=== PATIENT | female | born 1935 | race Caucasian/White ===

== ENCOUNTER 2016-10-08 14:49 | Inpatient (IN) | payer OTHER, MEDICAID ==
[~2016-10-08] VITALS: Ht 152.4 cm; Wt 72.1 kg
--- NOTE | 2016-10-08 15:00 | NUR ---
PT TO ER BED 11. TP WAS SENT BY PMD FOR MEDICAL EVAL PRIOR TO POSSIBLE GEROPSYCH ADMISSION. PT IS AAOX3. DENIES ANY MEDICAL COMPLAINT AT THIS TIME. STATES " I DONT KNOW WHY IM HERE. " MAYBE MY SON WANTS ME HERE. " VSS. AWAITING MD JOSE.
--- NOTE | 2016-10-08 15:30 | NUR ---
DR WARNER AT BEDSIDE FOR EVAL.
--- NOTE | 2016-10-08 15:31 | NUR ---
PRINTED CIRCUIT BOARDS LAMINATOR AT BEDSIDE FOR BLOOD DRAW.
[2016-10-08 15:54] LABS: ALANINE AMINOTRANSFERASE 30 U/L (12-78); ALBUMIN 3.6 g/dL (3.4-5.0); ALCOHOL, BLOOD < 3 mg/dL (0-0); ALKALINE PHOSPHATASE 69 U/L (46-116); ASPARTATE AMINOTRANSFERASE 24 U/L (15-37); BILIRUBIN,DIRECT 0.1 mg/dL (0.0-0.2); BILIRUBIN,TOTAL 0.6 mg/dL (0.2-1.0); CALCIUM, SERUM 9.4 mg/dL (8.5-10.1); CARBON DIOXIDE 31 mmol/L (21-32); CHLORIDE 103 mmol/L (98-107); CREATININE 0.9 mg/dL (0.6-1.3); GLUCOSE 239 mg/dL (74-106); POTASSIUM 3.9 mmol/L (3.5-5.1); SODIUM SERUM 139 mmol/L (136-145); UREA NITROGEN, BLOOD 10 mg/dL (7-18)
[2016-10-08] MEDS ORDERED: ASPI-991 PO (16:03)
[2016-10-08] MEDS ORDERED: GABA-532 PO (16:03)
[2016-10-08] MEDS ORDERED: CHOL200026 PO (16:03)
[2016-10-08] MEDS ORDERED: DONE10TA44 PO (16:03)
[2016-10-08] MEDS ORDERED: POLY119P2 PO (16:03)
[2016-10-08] MEDS ORDERED: ACET-868 PO (16:03)
[2016-10-08] MEDS ORDERED: GLIM4TAB2 PO (16:03)
[2016-10-08] MEDS ORDERED: QUET25TA PO ×2 (16:03)
[2016-10-08] MEDS ORDERED: LOPE2TAB25 PO (16:03)
[2016-10-08] MEDS ORDERED: METF10002 PO (16:03)
[2016-10-08] MEDS ORDERED: SIME125C81 PO (16:03)
[2016-10-08] MEDS ORDERED: VALS160T2 PO (16:03)
[2016-10-08 16:04] LABS: BASOPHILS # (AUTO) 0.4 /CMM (0.0-0.2); BASOPHILS % (AUTO) 4.9 % (0.0-2.0); EOSINOPHILS # (AUTO) 0.2 /CMM (0.0-0.7); EOSINOPHILS % (AUTO) 2.6 % (0.0-6.0); HEMATOCRIT 40 % (33-45); HEMOGLOBIN 13.1 g/dL (11.5-14.8); LYMPHOCYTES # (AUTO) 2.7 /CMM (0.8-4.8); LYMPHOCYTES % (AUTO) 34.8 % (20.0-44.0); MEAN CORPUSCULAR HEMOGLOBIN 29 PG (26.0-33.0); MEAN CORPUSCULAR HGB CONC 32 g/dl (31.0-36.0); MEAN CORPUSCULAR VOLUME 90 fL (82-100); MONOCYTES # (AUTO) 0.7 /CMM (0.1-1.30); MONOCYTES % (AUTO) 9.3 % (2.0-12.0); NEUTROPHILS # (AUTO) 3.8 /CMM (1.8-8.9); NEUTROPHILS % (AUTO) 48.4 % (43.0-81.0); PLATELET COUNT (AUTO) 273 /CMM (150-450); RDW COEFFICIENT OF VARIATION 12.6 (11.5-15.0); RED BLOOD CELL COUNT(AUTO) 4.49 MIL/uL (4.0-5.2); WHITE BLOOD COUNT (AUTO) 7.8 K/uL (4.3-11.0)
[2016-10-08 16:04] LABS: APPEARANCE,URINE Slightly Cloudy (CLEAR); BILIRUBIN,URINE Negative (NEGATIVE); BLOOD, URINE Small Ery/uL (NEGATIVE); COLOR,URINE Yellow (YELLOW); KETONES,URINE Trace (NEGATIVE); LEUKOCYTE ESTERASE ,URINE Small (NEGATIVE); NITRITE, URINE Negative (NEGATIVE); PH,URINE 5.5 (5.0-8.0); PROTEIN,URINE Trace mg/dl (NEGATIVE); UGLUCOSE 250 MG/DL mg/dL (NEGATIVE); UROBILINOGEN,URINE 0.2 EU/dL (0.2)
--- NOTE | 2016-10-08 16:47 | NUR ---
CALLED AUTO DEALER KEITH, LEFT VOICEMAIL.
--- NOTE | 2016-10-08 16:52 | NUR ---
[employer] CALLED BACK ETA OF 1HR WAS GIVEN.
[2016-10-08 17:23] LABS: BACTERIA,URINE Moderate /HPF (None Seen); SQUAMOUS EPITHELIAL CELL,UR Moderate /HPF (None Seen)
[2016-10-08 17:25] LABS: WBC,URINE 21-50 /HPF (0-3)
--- NOTE | 2016-10-08 17:50 | NUR ---
KEITH RN AT BEDSIDE FOR EVAL.
--- NOTE | 2016-10-08 19:20 | NUR ---
REPORT GIVEN TO ELVIN. PT AWAITING TRANSFER TO FLOOR.
[2016-10-08] MEDS ORDERED: hydrALAZINE HCL 10 MG TABLET PO PRN (19:30)
[2016-10-08] MEDS: BLOOD SUGAR DIAGNOSTIC 1 EACH STRIP IN SCH ×3 (19:30→22:00)
[2016-10-08] MEDS ORDERED: DEXTROSE 50%-WATER 50 ML DISP.SYRIN IV PRN (19:30)
[2016-10-08] MEDS ORDERED: LOPERAMIDE HCL (2 MG CAP) 2 MG CAPSULE PO PRN (20:00)
--- NOTE | 2016-10-08 20:09 | NUR ---
GPS/RN NOTE: ADMITTED FROM [facility], CAME TO THE UNIT AROUND 1930 ACCOMPANIED BY 1 MALE ER STAFF.ADMITTED ON 5150 HOLD FOR GD. PER HOLD PATIENT HAS INCREASING PARANOIA. UPON FACE TO FACE PATIENT IS ALERT, ORIENTED X1-2, CONFUSED, PARANOID, STATING THAT PEOPLE ARE STEALING MONEY FROM HER, AND THAT SHE IS INCREASINGLY FORGETFUL IN TAKING HER MEDS ACCORDING TO HER SON OR SKIPPING MEDICATIONS. PLACED PATIENT COMFORTABLY IN BED, AWAKE, ALERT, ORIENTED X2, KNOW HER NAME AND TIME ONLY, SHOWS NO S/S OF ANY DISCOMFORT OR PAIN. RESPIRATION EVEN, BREATHING PATTERN NON-LABORED, NO APPARENT DISTRESS NOTED. PATIENT IS AMBULATORY, SKIN WARM DRY AND INTACT. BELONGINGS INVENTORIED AND CHECKED FOR CONTRABAND, VALUABLES PUT IN TO SAFE. PATIENT IS UNDER THE PSYCHIATRIC CARE OF DR. VALIENTE AND UNDER THE MEDICAL CARE OF DR. MOSES. MED RECON NEEDS FOLLOW-UP. PLACED BED LOCKED AND ON LOWEST POSITION. WILL CONTINUE TO MONITOR Q 15 MINS. TO MAINTAIN SAFETY.
[2016-10-08] MEDS ORDERED: MAG HYDROX/AL HYDROX/SIMETH 30 ML UDC PO PRN (20:30)
[2016-10-08] MEDS ORDERED: MAGNESIUM HYDROXIDE 30 ML UDC PO PRN (20:30)
[2016-10-08] MEDS ORDERED: ACETAMINOPHEN 325 MG TABLET PO PRN (20:30)
[2016-10-08 20:34] VITALS: BP 171/72
[2016-10-08] MEDS: INSULIN REGULAR, HUMAN 100 UNIT/ML 3 ML VIAL SQ PRN (21:20)
[2016-10-08] MEDS: SULFAMETH/TRIMETH 800/160 MG 1 UDTAB TABLET PO SCH (21:28)
--- NOTE | 2016-10-08 21:38 | NUR ---
GPS/RN NOTE: ACCUCHECK 300 MG/DL, 6 UNITS REG. INSULIN SC ADMINISTERED. HS SNACKS GIVEN.
--- NOTE | 2016-10-08 21:55 | NUR ---
GPS/RN NOTE: PATIENT'S SON ARTEMIO SANCHEZ WAS MOTIFIED OF PATIENT'S ADMISSION TO THE UNIT. MESSAGE LEFT VIA VOICE MAIL.
[2016-10-08 23:14] VITALS: BP 157/63
--- NOTE | 2016-10-08 23:15 | NUR ---
GPS/RN NOTE: LATEST BP 157/63, HR 70. NO ACUTE DISTRESS NOTED. WILL MONITOR BP
[2016-10-09 07:18] LABS: ALANINE AMINOTRANSFERASE 27 U/L (12-78); ALBUMIN 3.3 g/dL (3.4-5.0); ALKALINE PHOSPHATASE 58 U/L (46-116); ASPARTATE AMINOTRANSFERASE 20 U/L (15-37); BILIRUBIN,TOTAL 0.8 mg/dL (0.2-1.0); CALCIUM, SERUM 8.9 mg/dL (8.5-10.1); CARBON DIOXIDE 32 mmol/L (21-32); CHLORIDE 105 mmol/L (98-107); CREATININE 0.6 mg/dL (0.6-1.3); GLUCOSE 155 mg/dL (74-106); POTASSIUM 3.7 mmol/L (3.5-5.1); SODIUM SERUM 141 mmol/L (136-145); TOTAL PROTEIN, SERUM 7.2 g/dL (6.4-8.2); UREA NITROGEN, BLOOD 9 mg/dL (7-18)
[2016-10-09 08:00] VITALS: BP 140/75
[2016-10-09] MEDS: ASPIRIN EC 81 MG TABLET.DR PO SCH (08:11)
[2016-10-09] MEDS: BLOOD SUGAR DIAGNOSTIC 1 EACH STRIP IN SCH ×4 (08:11→21:30)
[2016-10-09] MEDS: GABAPENTIN 100 MG CAPSULE PO SCH ×3 (08:12→18:36)
[2016-10-09] MEDS: METFORMIN 500 MG TABLET PO SCH ×2 (08:12→17:23)
[2016-10-09] MEDS: GLIMEPIRIDE 4 MG TABLET PO SCH ×2 (08:12→17:23)
[2016-10-09] MEDS: SULFAMETH/TRIMETH 800/160 MG 1 UDTAB TABLET PO SCH ×2 (08:12→21:16)
[2016-10-09] MEDS: VALSARTAN 80 MG TABLET PO SCH (08:12)
[2016-10-09] MEDS: DONEPEZIL 5 MG TABLET PO SCH (08:13)
[2016-10-09] MEDS: INSULIN REGULAR, HUMAN 100 UNIT/ML 3 ML VIAL SQ PRN ×2 (09:35→12:05)
--- NOTE | 2016-10-09 11:51 | NUR ---
Initial discharge plan: Pt. is from [facility] [address] [place], [place] [address]Ltnnr: and per Dr. Abreu she is able to return. AMY called the facility but admission was not available. SW will follow up again tomorrow. Pt. will follow up with and son Emre [phone], to arrange for safe and proper discharge.
[2016-10-09] MEDS ORDERED: hydrALAZINE HCL 10 MG TABLET PO PRN (12:30)
[2016-10-09] MEDS: HALOPERIDOL 1 MG TABLET PO SCH ×2 (13:22→18:46)
--- NOTE | 2016-10-09 14:01 | NUR ---
AMY left a voicemail for Eloisa from [facility] intake department to verify insurance contact center assistant for a review. Will follow up
[2016-10-09 16:00] VITALS: BP 159/89
[2016-10-09] MEDS: BENZTROPINE MESYLATE (1 MG) 1 MG TABLET PO SCH (17:23)
[2016-10-09 19:52] VITALS: BP 144/76
[2016-10-09 19:58] VITALS: BP 144/76
--- NOTE | 2016-10-09 21:31 | NUR ---
GPS/VP LAB NOTES: PT. REFUSED HS INSULIN COVERAGE. BS NOTED AT 151. OFFERED 3X. EXPLAINED RISK AND BENEFITS. PT. STILL REFUSED. WILL CONTINUE TO MONITOR.
[2016-10-10] MEDS: BLOOD SUGAR DIAGNOSTIC 1 EACH STRIP IN SCH ×4 (07:34→22:04)
[2016-10-10] MEDS: INSULIN REGULAR, HUMAN 100 UNIT/ML 3 ML VIAL SQ PRN ×3 (07:40→17:34)
[2016-10-10 08:03] LABS: CHOLESTEROL 157 mg/dL (<200); HDL CHOLESTEROL 61 mg/dL (40-60); LDL 82 mg/dL (0-99); TRIGLYCERIDES 106 mg/dL (30-150)
[2016-10-10] MEDS: VALSARTAN 80 MG TABLET PO SCH ×2 (09:00→11:03)
[2016-10-10] MEDS: HALOPERIDOL 1 MG TABLET PO SCH ×2 (09:02→17:31)
[2016-10-10] MEDS: GLIMEPIRIDE 4 MG TABLET PO SCH ×2 (09:02→17:31)
[2016-10-10] MEDS: SULFAMETH/TRIMETH 800/160 MG 1 UDTAB TABLET PO SCH ×2 (09:02→21:22)
[2016-10-10] MEDS: GABAPENTIN 100 MG CAPSULE PO SCH ×3 (09:02→17:43)
[2016-10-10] MEDS: BENZTROPINE MESYLATE (1 MG) 1 MG TABLET PO SCH ×2 (09:02→17:32)
[2016-10-10] MEDS: DONEPEZIL 5 MG TABLET PO SCH (09:02)
[2016-10-10] MEDS: METFORMIN 500 MG TABLET PO SCH ×2 (09:02→17:39)
[2016-10-10] MEDS: ASPIRIN EC 81 MG TABLET.DR PO SCH (11:40)
--- NOTE | 2016-10-10 15:28 | NUR ---
UR update: AMY faxed H&Ps, med list, 8530 hold, updated clinicals, and facesheet to Briana from [facility]. for [facility] [phone] fax [phone]. Will follow up
[2016-10-10 16:00] VITALS: BP 138/61
[2016-10-10 20:00] VITALS: BP 135/65
[2016-10-11] MEDS: BLOOD SUGAR DIAGNOSTIC 1 EACH STRIP IN SCH ×4 (07:30→21:41)
[2016-10-11] MEDS: INSULIN REGULAR, HUMAN 100 UNIT/ML 3 ML VIAL SQ PRN ×2 (07:33→11:59)
[2016-10-11 08:00] VITALS: BP 146/72
[2016-10-11] MEDS: ASPIRIN EC 81 MG TABLET.DR PO SCH (09:13)
[2016-10-11] MEDS: DONEPEZIL 5 MG TABLET PO SCH (09:13)
[2016-10-11] MEDS: VALSARTAN 80 MG TABLET PO SCH (09:13)
[2016-10-11] MEDS: SULFAMETH/TRIMETH 800/160 MG 1 UDTAB TABLET PO SCH ×2 (09:13→20:49)
[2016-10-11] MEDS: GABAPENTIN 100 MG CAPSULE PO SCH ×3 (09:13→16:55)
[2016-10-11] MEDS: METFORMIN 500 MG TABLET PO SCH ×2 (09:14→16:55)
[2016-10-11] MEDS: BENZTROPINE MESYLATE (1 MG) 1 MG TABLET PO SCH ×3 (09:14→16:56)
[2016-10-11] MEDS: HALOPERIDOL 1 MG TABLET PO SCH ×3 (09:14→16:55)
[2016-10-11] MEDS: GLIMEPIRIDE 4 MG TABLET PO SCH ×2 (09:14→16:56)
[2016-10-11 16:00] VITALS: BP 150/71
--- NOTE | 2016-10-11 16:20 | NUR ---
UR Update: AMY faxed med list, nurses notes to Briana from [facility]. for Intermediate [phone] fax [phone]. AMY informed her that psychiatric progress note was not posted yet and that assigned SW will follow up on Friday. She stated that this was okay.
[2016-10-11 20:00] VITALS: BP 140/68
--- NOTE | 2016-10-12 00:59 | NUR ---
RN NOTES: PATIENT COMPLAINED OF PAIN OVER HER LEFT LEG, DESCRIBED NUMBING. ADMINISTERED TYLENOL 650 MG PO. WILL CONT TO MONITOR.
[2016-10-12] MEDS: BLOOD SUGAR DIAGNOSTIC 1 EACH STRIP IN SCH ×4 (07:30→22:35)
[2016-10-12 08:26] VITALS: BP 139/68
[2016-10-12] MEDS: BENZTROPINE MESYLATE (1 MG) 1 MG TABLET PO SCH ×3 (08:48→17:15)
[2016-10-12] MEDS: ASPIRIN EC 81 MG TABLET.DR PO SCH (08:49)
[2016-10-12] MEDS: VALSARTAN 80 MG TABLET PO SCH (08:49)
[2016-10-12] MEDS: SULFAMETH/TRIMETH 800/160 MG 1 UDTAB TABLET PO SCH ×2 (08:50→21:13)
[2016-10-12] MEDS: DONEPEZIL 5 MG TABLET PO SCH (08:50)
[2016-10-12] MEDS: GABAPENTIN 100 MG CAPSULE PO SCH ×3 (08:50→17:15)
[2016-10-12] MEDS: GLIMEPIRIDE 4 MG TABLET PO SCH ×2 (08:50→17:15)
[2016-10-12] MEDS: METFORMIN 500 MG TABLET PO SCH ×2 (08:50→17:15)
[2016-10-12] MEDS ORDERED: HALOPERIDOL DECANOATE IM 100 MG/ML AMPUL IM ONE (09:00)
[2016-10-12] MEDS: HALOPERIDOL 1 MG TABLET PO SCH ×3 (11:19→17:15)
[2016-10-12] MEDS: INSULIN REGULAR, HUMAN 100 UNIT/ML 3 ML VIAL SQ PRN ×2 (12:31→17:17)
[2016-10-12 16:00] VITALS: BP 147/71
--- NOTE | 2016-10-12 19:35 | NUR ---
GPS RN NOTES IN BED SLEEPING,AROUSABLE TO VERBAL STIMULI,A/O X1-2.WILL CONTINUE TO MONITOR BEHAVIOR
[2016-10-12 20:00] VITALS: BP 139/56
--- NOTE | 2016-10-12 22:30 | NUR ---
GPS RN NOTES ACCU-CHECK BLOOD SUGAR CHECK 63,ASYMPTOMATIC FOR HYPOGLYCEMIA,ORANGE JUICE 1 CUP WITH SUGAR GIVEN.WILL CONTINUE TO MONITOR.
[2016-10-13 08:00] VITALS: BP 147/58
[2016-10-13] MEDS: BLOOD SUGAR DIAGNOSTIC 1 EACH STRIP IN SCH ×4 (08:33→21:07)
[2016-10-13] MEDS: ASPIRIN EC 81 MG TABLET.DR PO SCH (09:08)
[2016-10-13] MEDS: SULFAMETH/TRIMETH 800/160 MG 1 UDTAB TABLET PO SCH ×2 (09:08→21:05)
[2016-10-13] MEDS: BENZTROPINE MESYLATE (1 MG) 1 MG TABLET PO SCH ×3 (09:08→17:03)
[2016-10-13] MEDS: GABAPENTIN 100 MG CAPSULE PO SCH ×3 (09:08→17:03)
[2016-10-13] MEDS: METFORMIN 500 MG TABLET PO SCH ×2 (09:08→17:03)
[2016-10-13] MEDS: GLIMEPIRIDE 4 MG TABLET PO SCH ×2 (09:08→17:04)
[2016-10-13] MEDS: DONEPEZIL 5 MG TABLET PO SCH (09:09)
[2016-10-13] MEDS: VALSARTAN 80 MG TABLET PO SCH (09:09)
[2016-10-13] MEDS: HALOPERIDOL 1 MG TABLET PO SCH ×3 (09:09→17:03)
[2016-10-13] MEDS: INSULIN REGULAR, HUMAN 100 UNIT/ML 3 ML VIAL SQ PRN ×2 (12:18→17:43)
[2016-10-13 20:09] VITALS: BP 100/49
[2016-10-14 08:00] VITALS: BP 141/68
[2016-10-14] MEDS: GABAPENTIN 100 MG CAPSULE PO SCH ×3 (08:47→16:43)
[2016-10-14] MEDS: BENZTROPINE MESYLATE (1 MG) 1 MG TABLET PO SCH ×3 (08:48→16:43)
[2016-10-14] MEDS: ASPIRIN EC 81 MG TABLET.DR PO SCH (08:48)
[2016-10-14] MEDS: HALOPERIDOL 1 MG TABLET PO SCH ×3 (08:48→16:43)
[2016-10-14] MEDS: DONEPEZIL 5 MG TABLET PO SCH (08:48)
[2016-10-14] MEDS: SULFAMETH/TRIMETH 800/160 MG 1 UDTAB TABLET PO SCH ×2 (08:48→21:18)
[2016-10-14] MEDS: GLIMEPIRIDE 4 MG TABLET PO SCH ×2 (08:48→16:43)
[2016-10-14] MEDS: VALSARTAN 80 MG TABLET PO SCH (08:48)
[2016-10-14] MEDS: BLOOD SUGAR DIAGNOSTIC 1 EACH STRIP IN SCH ×4 (08:49→21:17)
[2016-10-14] MEDS: INSULIN REGULAR, HUMAN 100 UNIT/ML 3 ML VIAL SQ PRN ×3 (09:25→21:21)
[2016-10-14] MEDS: METFORMIN 500 MG TABLET PO SCH ×2 (09:48→16:43)
--- NOTE | 2016-10-14 12:30 | NUR ---
GPS/RN BS 198, ADMINISTERED 3 UNITS REGULAR INSULIN ORDERED, WILL CONTINUE TO MONITOR.
--- NOTE | 2016-10-14 12:40 | NUR ---
UR Update: AMY faxed med list, nurses notes, and updated MD notes to Briana from [facility]. for [facility] [phone] fax [phone]. Will follow up
[2016-10-14 16:00] VITALS: BP 128/58
--- NOTE | 2016-10-14 18:57 | NUR ---
GPS/RN BS 143, ADMINISTERED 2 UNITS REGULAR INSULIN ORDERED, WILL CONTINUE TO MONITOR. Addendum: 10/14/16 at 1859 by ANGÉLICA CROWE RN TIME IS AT 0800
[2016-10-14 19:51] VITALS: BP 130/59
[2016-10-15 08:00] VITALS: BP 133/71
[2016-10-15] MEDS: GLIMEPIRIDE 4 MG TABLET PO SCH ×2 (08:23→17:16)
[2016-10-15] MEDS: GABAPENTIN 100 MG CAPSULE PO SCH ×3 (08:23→16:31)
[2016-10-15] MEDS: BLOOD SUGAR DIAGNOSTIC 1 EACH STRIP IN SCH ×4 (08:23→21:50)
[2016-10-15] MEDS: ASPIRIN EC 81 MG TABLET.DR PO SCH (08:23)
[2016-10-15] MEDS: BENZTROPINE MESYLATE (1 MG) 1 MG TABLET PO SCH ×3 (08:23→16:28)
[2016-10-15] MEDS: VALSARTAN 80 MG TABLET PO SCH (08:24)
[2016-10-15] MEDS: DONEPEZIL 5 MG TABLET PO SCH (08:24)
[2016-10-15] MEDS: SULFAMETH/TRIMETH 800/160 MG 1 UDTAB TABLET PO SCH ×2 (08:24→21:32)
[2016-10-15] MEDS: HALOPERIDOL 1 MG TABLET PO SCH ×3 (08:24→16:31)
[2016-10-15] MEDS: METFORMIN 500 MG TABLET PO SCH ×2 (08:24→17:17)
--- NOTE | 2016-10-15 10:42 | NUR ---
SW called to speak with pt's son Emre [phone], about discharge. He was unavailable, pt. left a voicemail.
[2016-10-15] MEDS ORDERED: VENLAFAXINE XR 75 MG CAP.SR.24H PO SCH (11:00)
--- NOTE | 2016-10-15 11:45 | NUR ---
Mayra ([phone] from [facility] [address] [place], [place] [address]Smwfm: was left a voicemail to check on readmission. SW was told that pt. needs to be reassessed before they can admit her back.
[2016-10-15] MEDS: INSULIN REGULAR, HUMAN 100 UNIT/ML 3 ML VIAL SQ PRN ×2 (12:30→17:19)
--- NOTE | 2016-10-15 12:30 | NUR ---
GPS/RN BS 213, ADMINISTERED 3 UNITS REGULAR INSULIN ORDERED, WILL CONTINUE TO MONITOR.
--- NOTE | 2016-10-15 14:42 | NUR ---
UR Update: AMY faxed med list, nurses notes, and updated MD notes to Briana from [facility]. for Retirement [phone] fax [phone]. Will follow up
--- NOTE | 2016-10-15 14:44 | NUR ---
Pt's son, Emre [phone], called back and he confirmed that he would like pt. to return back to the facility. Alessia Morton [facility] [address] [place], [place] [address]Qzzek:
--- NOTE | 2016-10-15 14:46 | NUR ---
Mayra ([phone] from [facility] [address] [place], [place] [address]Uvxwu: came to assess the patient and pt. can be accepted back. Sw confirmed with Dr. Abreu. Pt. can be discharged tomorrow or .
[2016-10-15 16:10] VITALS: BP 134/72
--- NOTE | 2016-10-15 16:51 | NUR ---
GPS/RN PATIENT REFUSED HALDOL 2 MG PO X 3, STATED THAT "THE MEDICATION IS POISON AND MAKES ME DIZZY", EXPLAINED RISKS AND BENEFITS, WILL CONTINUE TO ENCOURAGE TO COMPLY WITH MD REGIMEN.
[2016-10-15 18:35] VITALS: BP 155/67
[2016-10-15 20:06] VITALS: BP 144/74
--- NOTE | 2016-10-16 06:37 | NUR ---
RN GPS NOTE PT .REMAINED IN STABLE CONDITION RESTING IN HER BED ,NO ACUTE DISTRESS NOTED ATTENDED ALL NEEDS AND ANTICIPATED , DENIES SI/ HI AT THIS TIME, ENDORSE TO NEXT SHIFT NURSE. WILL ENDORSE TO NEXT SHIFT FOR CONTINUITY OF CARE
[2016-10-16 08:00] VITALS: BP 123/66
[2016-10-16] MEDS: GABAPENTIN 100 MG CAPSULE PO SCH ×3 (08:46→17:56)
[2016-10-16] MEDS: BENZTROPINE MESYLATE (1 MG) 1 MG TABLET PO SCH ×3 (08:47→17:56)
[2016-10-16] MEDS: SULFAMETH/TRIMETH 800/160 MG 1 UDTAB TABLET PO SCH ×2 (08:47→21:33)
[2016-10-16] MEDS: METFORMIN 500 MG TABLET PO SCH ×2 (08:48→17:55)
[2016-10-16] MEDS: HALOPERIDOL 1 MG TABLET PO SCH ×3 (08:48→17:55)
[2016-10-16] MEDS: VALSARTAN 80 MG TABLET PO SCH (08:48)
[2016-10-16] MEDS: GLIMEPIRIDE 4 MG TABLET PO SCH ×2 (08:49→17:56)
[2016-10-16] MEDS: DONEPEZIL 5 MG TABLET PO SCH (08:49)
[2016-10-16] MEDS: ASPIRIN EC 81 MG TABLET.DR PO SCH (08:49)
[2016-10-16] MEDS: BLOOD SUGAR DIAGNOSTIC 1 EACH STRIP IN SCH ×4 (08:51→22:23)
[2016-10-16] MEDS: INSULIN REGULAR, HUMAN 100 UNIT/ML 3 ML VIAL SQ PRN ×3 (08:57→17:59)
[2016-10-16] MEDS: DIVALPROEX SODIUM 125 MG CAP.SPRINK PO SCH ×2 (12:39→21:33)
[2016-10-16 16:36] VITALS: BP 125/63
[2016-10-16 20:00] VITALS: BP 127/55
[2016-10-16 21:00] VITALS: BP 123/65
--- NOTE | 2016-10-17 06:41 | NUR ---
RN GPS NOTE PT IN BED, COMFORTABLY RESTING AT THIS TIME. NO ACUTE DISTRESS NOTED, ALL NEEDS ATTENDED AND ANTICIPATED , DENIES SI/ HI. SAFETY PRECAUTIONS OBSERVED. WILL ENDORSE TO NEXT SHIFT FOR CONTINUITY OF CARE .
[2016-10-17] MEDS: BLOOD SUGAR DIAGNOSTIC 1 EACH STRIP IN SCH ×2 (07:32→12:00)
[2016-10-17 08:00] VITALS: BP 129/71
[2016-10-17] MEDS: DIVALPROEX SODIUM 125 MG CAP.SPRINK PO SCH (08:21)
[2016-10-17] MEDS: GABAPENTIN 100 MG CAPSULE PO SCH ×3 (08:21→16:51)
[2016-10-17] MEDS: DONEPEZIL 5 MG TABLET PO SCH (08:21)
[2016-10-17] MEDS: SULFAMETH/TRIMETH 800/160 MG 1 UDTAB TABLET PO SCH (08:21)
[2016-10-17] MEDS: VALSARTAN 80 MG TABLET PO SCH (08:21)
[2016-10-17] MEDS: ASPIRIN EC 81 MG TABLET.DR PO SCH (08:22)
[2016-10-17] MEDS: BENZTROPINE MESYLATE (1 MG) 1 MG TABLET PO SCH ×3 (08:22→16:51)
[2016-10-17] MEDS: HALOPERIDOL 1 MG TABLET PO SCH ×3 (08:22→16:51)
[2016-10-17] MEDS: GLIMEPIRIDE 4 MG TABLET PO SCH ×2 (08:22→16:51)
[2016-10-17] MEDS: METFORMIN 500 MG TABLET PO SCH ×2 (08:22→16:51)
--- NOTE | 2016-10-17 12:17 | NUR ---
AMY arranged ambulance with [facility] [phone] by the order of pt's insurance KATHRINE Warren from [facility]. for [facility] [phone] fax [phone]. Pt. will be picked up at 2:30-2:45PM
--- NOTE | 2016-10-17 15:08 | NUR ---
Discharge note: Discharged back to [facility] [address] [place], [place] [address]Glwql: . SonEmre [phone], was notified. Pt's psychiatrist is Dr. Abreu [phone] who will follow up the patient at the facility. Pt was provided with discharge instructions and discharge paperwork has been signed.
--- NOTE | 2016-10-17 15:17 | NUR ---
UR Update: AMY faxed discharge information to Briana from [facility]. for Nursing Home [phone] fax [phone].
[2016-10-17 16:00] VITALS: BP 132/56
--- NOTE | 2016-10-17 17:00 | NUR ---
DISCHARGE NOTES PATIENT DISCHARGE AT THIS TIME GOING BACK TO [facility], [address]ESS [address], [place] [address]. PHONE #[phone]. PATIENT A/O X3, MED COMPLIANT, V/S STABLE, NO C/O PAIN, MEDICALLY STABLE. PATIENT DENIED SI/HI/AVH AT THIS TIME OF DISCHARGE. MED RECONCILIATION AND DISCHARGE ORDER REVIEWED AND EXPLAINED TO PATIENT. PATIENT VERBALIZED UNDERSTANDING. BELONGING RETURNED BACK TO THE PATIENT. PATIENT RAW STOCK DYEING MACHINE TENDER BY AMBULANCE. MEDICATION FAXED TO ATTENTION NAME HUGO FAX # [phone]. BOTH MEDICAL AND PSYCH DOCTORS PHONE NUMBER GIVEN TO THE PATIENT TO FOLLOW UP.
== END 2016-10-17 17:00 | DRG 885 ==
LOC: ER 14:56 → GPS 18:45
PROVIDERS: ADMIT Psychiatry & Neurology Psychosomatic Medicine; ATTEND Internal Medicine
DX: F25.0 Schizoaffective disorder, bipolar type (principal); E11.65 Type 2 diabetes mellitus with hyperglycemia; N39.0 Urinary tract infection, site not specified; E44.0 Moderate protein-calorie malnutrition; I67.82 Cerebral ischemia; I10 Essential (primary) hypertension; E03.9 Hypothyroidism, unspecified; E66.9 Obesity, unspecified; E78.5 Hyperlipidemia, unspecified; F03.90 Unspecified dementia, unspecified severity, without behavioral disturbance, psychotic disturbance, mood disturbance, and anxiety; I25.10 Atherosclerotic heart disease of native coronary artery without angina pectoris; Z79.84 Long term (current) use of oral hypoglycemic drugs; Z79.899 Other long term (current) drug therapy; K21.9 Gastro-esophageal reflux disease without esophagitis; Z73.6 Limitation of activities due to disability; Z68.31 Body mass index [BMI] 31.0-31.9, adult; B96.20 Unspecified Escherichia coli [E. coli] as the cause of diseases classified elsewhere; Z95.0 Presence of cardiac pacemaker; F29 Unspecified psychosis not due to a substance or known physiological condition
CPT/HCPCS: 36415; 80048-TC; 80053-TC; 80061-TC; 80076-TC; 80305; 81000-TC; 82962-TC; 84443-TC; 85025-TC; 87081-TC; 87086-TC; 87186-TC; A4606; G0480; J1631; J1815; Z7610